=== PATIENT | male | born 1965 | race American Indian/Alaskan Native ===

== ENCOUNTER 2022-04-26 08:26 | Emergency (ER) | payer OTHER ==
[2022-04-26] MEDS ORDERED: Doxycycline 100 MG Cap PO ONE (10:20)
[2022-04-26] MEDS ORDERED: Sodium Chloride 0.9% 10 ML Syringe FLUSH PRN (10:51)
[2022-04-26] MEDS ORDERED: Sodium Chloride 0.9% 2.5 ML Syringe FLUSH PRN (10:51)
== END 2022-04-26 14:51 | disposition home or self-care (01) ==
LOC: MW.ED 08:26
DX: N40.1 Benign prostatic hyperplasia with lower urinary tract symptoms (principal); R33.8 Other retention of urine; I10 Essential (primary) hypertension; E11.9 Type 2 diabetes mellitus without complications; Z79.4 Long term (current) use of insulin; Z79.899 Other long term (current) drug therapy
CPT/HCPCS: 81001; 99284

== ENCOUNTER 2022-04-26 10:31 | Emergency (ER) | payer OTHER ==
[2022-04-26] MEDS ORDERED: Sodium Chloride 0.9% 2.5 ML Syringe FLUSH PRN (11:36)
[2022-04-26] MEDS ORDERED: Sodium Chloride 0.9% 10 ML Syringe FLUSH PRN (11:36)
[2022-04-26] MEDS ORDERED: Doxycycline 100 MG Cap PO STA (11:45)
[2022-04-26 12:27] LABS: BLOOD UREA NITROGEN,BUN 20 mg/dL (7.0-18.0); CARBON DIOXIDE,CO2 26.7 mmol/L (21.0-32.0); CHLORIDE,CL 106 mmol/L (98-107); GLUCOSE RANDOM 103 mg/dL (74-106); POTASSIUM,K 4.2 mmol/L (3.5-5.1); SODIUM,NA 142 mmol/L (136-148)
[2022-04-26 12:32] LABS: ESTIMATED GFR 100 mL/min (>60)
[2022-04-26] MEDS ORDERED: Iopamidol 755 MG/ML 500 ML Multipack Bottle IVPUSH ONE (13:16)
== END 2022-04-26 14:51 | disposition home or self-care (01) ==
LOC: MW.ED 10:31 → MERGE 10:31 → MW.ED 14:51
DX: R33.9 Retention of urine, unspecified (principal)
CPT/HCPCS: 36415; 74178; 74178-26; 80053; 85025; 87086; 99284; A9270-GY; J3490; Q9967